=== PATIENT | male | born 1990 | race Caucasian/White ===

== ENCOUNTER → 2020-02-18 | Outpatient (CLI) | payer BC | END | disposition home or self-care (01) | LOC: STAR 15:15 | PROVIDERS: ATTEND Surgery | DX: Z20.828 Contact with and (suspected) exposure to other viral communicable diseases (principal); K40.90 Unilateral inguinal hernia, without obstruction or gangrene, not specified as recurrent | CPT/HCPCS: 87635 ==

== ENCOUNTER 2020-02-23 06:31 | Day surgery (SDC) | payer BC ==
[~2020-02-23] VITALS: Ht 175.3 cm; Wt 69.0 kg
[2020-02-23 06:58] VITALS: BP 116/77
[2020-02-23] MEDS ORDERED: BUPIVACAINE/PF 0.5% ONE (06:59)
[2020-02-23] MEDS ORDERED: BUPIVACAINE/PF-EPI 0.5% 1:200K ONE (06:59)
[2020-02-23] MEDS ORDERED: CHLORHEXIDINE 15 ML UDC MM ONE (07:00)
[2020-02-23] MEDS ORDERED: LACTATED RINGERS 1,000 ML IV SCH (07:00)
[2020-02-23] MEDS ORDERED: FENTANYL PF 100 MCG/2ML ONE (07:51)
[2020-02-23] MEDS ORDERED: MIDAZOLAM 1 MG/ML, 2ML ONE (07:51)
[2020-02-23] MEDS ORDERED: SUGAMMADEX 200 MG/2 ML IVPush ONE (07:54)
[2020-02-23] MEDS ORDERED: ONDANSETRON 2MG/ML, 2ML ONE (07:54)
[2020-02-23] MEDS ORDERED: DEXAMETHASONE 4 MG/ML, 1ML ONE (07:54)
[2020-02-23] MEDS ORDERED: ROCURONIUM 10 MG/ML,10ML ONE (07:54)
[2020-02-23] MEDS ORDERED: KETOROLAC 30 MG/1 ML ONE (07:54)
[2020-02-23] MEDS ORDERED: CEFAZOLIN 1,000 MG ONE (07:54)
[2020-02-23] MEDS ORDERED: OXYcodone 5 MG/5 ML ORAL.SOL UDC PO PRN (08:30)
[2020-02-23] MEDS ORDERED: FENTANYL PF 100 MCG/2ML IV PRN (08:30)
[2020-02-23] MEDS ORDERED: ONDANSETRON 2MG/ML, 2ML IVPush PRN (08:30)
[2020-02-23] MEDS ORDERED: LABETALOL 5MG/ML, 20ML IV PRN (08:30)
[2020-02-23] MEDS ORDERED: METOCLOPRAMIDE 5 MG/ML, 2ML IVPush PRN (08:30)
[2020-02-23] MEDS ORDERED: PROMETHAZINE 25 MG/ML, 1ML IVPush PRN (08:30)
[2020-02-23] MEDS ORDERED: ACETAMINOPHEN 325 MG TABLET PO PRN (08:30)
[2020-02-23] MEDS ORDERED: DIPHENHYDRAMINE 50 MG/ML, 1ML IVPush PRN (08:30)
[2020-02-23] MEDS ORDERED: HYDROmorphone 1 MG/ML, 1ML INJ IVPush PRN (08:30)
[2020-02-23] MEDS ORDERED: DIAZEPAM 5 MG/ML, 2ML IVPush PRN (08:30)
[2020-02-23] MEDS ORDERED: MEPERIDINE/PF 25MG/0.5ML IVPush PRN (08:30)
[2020-02-23] MEDS ORDERED: hydrALAzine 20 MG/ML, 1ML IV PRN (08:30)
== END 2020-02-23 10:20 | disposition home or self-care (01) ==
LOC: OUT 06:31
PROVIDERS: ATTEND Surgery
DX: K40.90 Unilateral inguinal hernia, without obstruction or gangrene, not specified as recurrent (principal); Z80.0 Family history of malignant neoplasm of digestive organs
CPT/HCPCS: 49650; C1781; J0690; J1100; J1885; J2250; J2405; J3010; J7120; S2900